=== PATIENT | male | born 1990 | race Caucasian/White ===

== ENCOUNTER 2022-10-30 02:44 | Emergency (ER) | payer MEDICAID ==
[~2022-10-30] VITALS: Ht 177.8 cm; Wt 81.6 kg
[2022-10-30 02:46] VITALS: BP 124/79; PULSE 101; RESP 18; TEMP 97.4; O2SAT 100
[2022-10-30 03:20] VITALS: BP 124/79; PULSE 101; RESP 18; TEMP 97.4; O2SAT 100
== END 2022-10-30 03:20 ==
LOC: MED 02:44
DX: M54.6 Pain in thoracic spine (principal); M25.512 Pain in left shoulder; M25.511 Pain in right shoulder; V49.88XA Car occupant (driver) (passenger) injured in other specified transport accidents, initial encounter; Y93.89 Activity, other specified; Y92.89 Other specified places as the place of occurrence of the external cause; Y99.8 Other external cause status
CPT/HCPCS: 71045; 99283; Q0092